=== PATIENT | male | born 1965 | race Caucasian/White ===

== ENCOUNTER 2019-06-01 19:11 | Emergency (ER) | payer OTHER, SELFPAY ==
[2019-06-01 19:28] VITALS: BP 173/80; PULSE 95; RESP 16; O2SAT 100
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
[2019-06-01] MEDS: TETANUS,DIPHTHERIA,AC PERTUSSIS ADULT 0.5 ML (ADACEL) IM (21:10)
[2019-06-01 21:15] VITALS: BP 168/89; PULSE 90; RESP 16; O2SAT 100
== END 2019-06-01 21:27 | disposition home or self-care (01) ==
PROVIDERS: Emergency Provider Emergency Medicine
DX: T21.24XA Burn of second degree of lower back, initial encounter (principal); T31.0 Burns involving less than 10% of body surface; Z23 Encounter for immunization; X11.1XXA Contact with running hot water, initial encounter
CPT/HCPCS: 16020; 90471; 90715; 99283

== ENCOUNTER 2022-12-09 01:46 | Emergency (ER) | payer MEDICAID, SELFPAY ==
--- NOTE | ~2022-12-09 | XR_ITS ---
XR elbow LT min 3V DATE: 12/09/2022 05:04 INDICATION: Dog bite, puncture wound TECHNIQUE: 4 views of left elbow COMPARISON: None FINDINGS: No fracture or dislocation or joint effusion. IMPRESSION: Negative Reviewed, dictated and finalized at location [facility]. IMPRESSION: Negative
--- NOTE | ~2022-12-09 | US_ITS ---
US scrotum doppler DATE: 12/09/2022 07:43 INDICATION: Scrotal trauma. Large open wound on scrotum from dog bite. TECHNIQUE: Real-time imaging and color flow imaging and Doppler analysis of the scrotal contents COMPARISON: None FINDINGS: No testicular mass lesion or torsion is detected. Approximate 4 [place] cyst of the head of the right epididymis. 3 mm cyst of the head of the left epid idymis. Small bilateral hydroceles. No varicoceles are noted. IMPRESSION: No testicular abnormalities detected Reviewed, dictated and finalized at [facility]. Reviewed, dictated and finalized at location A.
[2022-12-09 03:00] VITALS: BP 118/72; PULSE 91; RESP 16; TEMP 36.8; O2SAT 98
[2022-12-09] MEDS: TETANUS,DIPHTHERIA,AC PERTUSSIS ADULT (0.5 ML) BOOSTRIX IM (04:49)
[2022-12-09] MEDS: AMPICILLIN SULB 3 GM/NS 100 ML 3 GM/100 ML VIAL IVPB (04:50)
--- NOTE | 2022-12-09 06:33 | ED.GENADULT ---
HPI - General Adult General Chief complaint: Animal Bite <Garry Ortega MD - Last Filed: 12/09/22 06:37> Stated complaint: bit by pitbull <Garry Ortega MD - Last Filed: 12/09/22 06:37> Time Seen by Provider: 12/09/22 04:36 <Garry Ortega MD - Last Filed: 12/09/22 06:37> History of Present Illness HPI narrative: The patient 57-year-old gentleman who presents the emergency department with chief complaint of dog bites. Patient reports that his friends dog got startled and decided to attack him patient reports that he got bit in the scrotum and also reports that he got bit on the left elbow. Patient reports he has several small puncture wounds to the left elbow area patient also reports that there is a flap of tissue off of his scrotum. The patient reports pain with movement and improved with rest. The patient reports he is unsure of his last tetanus status reports that he has no allergies to penicillin <Garry Ortega MD - Last Filed: 12/09/22 06:37> Related Data Allergies/adverse reactions: Allergies Allergy/AdvReac Type Severity Reaction Status Date / Time No Known Allergies Allergy Verified 06/01/19 19:40 <Garry Ortega MD - Last Filed: 12/09/22 06:37> Review of Systems Review of Systems: A 10 system review of systems was completed on the patient and is negative except for what is stated in the HPI. Nursing and ancillary documentation was reviewed. <Garry Ortega MD - Last Filed: 12/09/22 06:37> [facility] Past Medical History Medical History: Medical History No active medical problems <Garry Ortega MD - Last Filed: 12/09/22 06:37> Social History Social History: Social History Substance use: never Gender identity (if verbalized by the patient): Male <Garry Ortega MD - Last Filed: 12/09/22 06:37> Exam Narrative: GENERAL: Well-appearing, well-nourished, and in no acute distress. HEAD: Normocephalic, atraumatic. EYES: PERRLA and EOMI. ENT: Nares clear, no rhinorrhea or epistaxis. Mucous membranes moist. NECK: Supple. CHEST: Clear to auscultation. No respiratory distress. HEART: Regular rate and rhythm. No murmur heard. Normal peripheral pulses. ABDOMEN: Soft, nontender, nondistended, normal active bowel sounds. : There is a half dollar sized wound present on the scrotum this appears to go through the outer layer of skin to the subcutaneous tissue EXTREMITIES: Normal range of motion there are several small puncture wounds present in the left elbow area. No edema. SKIN: Warm, dry, no rash. NEURO: No focal deficits. Alert and oriented x3. PSYCH: Normal mood and affect. <Garry Ortega MD - Last Filed: 12/09/22 06:37> Course Reevaluation(s) Reevaluation #1: Patient laying down in bed comfortable, denying any symptoms. Patient to be discharged to follow-up with his family physician and urologist within 1 week, no stitches at this time, discharge with Keflex and topical Neosporin, discussed with Dr. Al <Aleksandr Schmitz MD - Last Filed: 12/09/22 09:36> Date: 12/09/22 <Aleksandr Schmitz MD - Last Filed: 12/09/22 09:36> Time: 09:35 <Aleksandr Schmitz MD - Last Filed: 12/09/22 09:36> Consultations Consultation #1: dr al Clean, no stitches, discharge, outpatient follow-up with urologist <Aleksandr Schmitz MD - Last Filed: 12/09/22 09:36> Date: 12/09/22 <Aleksandr Schmitz MD - Last Filed: 12/09/22 09:36> Time: 08:44 <Aleksandr Schmitz MD - Last Filed: 12/09/22 09:36> Vital Signs Vital signs: Vital Signs Temperature 36.8 C 12/09/22 03:00 Pulse Rate 91 12/09/22 03:00 Respiratory Rate 16 09/16/23 03:00 Blood Pressure 118/72 12/09/22 03:00 Pulse Oximetry 98 12/09/22 03:00 Oxygen Deliver
[2022-12-09 06:56] VITALS: BP 118/60; PULSE 90; RESP 16; O2SAT 98
--- NOTE | 2022-12-09 07:19 | PC.NURSE ---
Assumed care of pt. U/S at bedside at this time, pt is alert and upright w/ VSS. Spouse at bedside. Discussed POC. VORB Dr Schmitz to give Dilaudid 0.5mg and Zofran 4mg IVP.
[2022-12-09 07:24] VITALS: BP 109/71; PULSE 55; RESP 17; O2SAT 100
[2022-12-09] MEDS: HYDROmorphone HCL INJ (*CRX) 1 MG/ML SYR 0.5 MG IV PUSH (07:30)
[2022-12-09] MEDS: ONDANSETRON INJ 4 MG/2 ML VIAL IV PUSH (07:31)
[2022-12-09 10:06] VITALS: BP 106/69; PULSE 58; RESP 16; O2SAT 99
== END 2022-12-09 10:08 | disposition home or self-care (01) ==
PROVIDERS: Emergency Provider Emergency Medicine
DX: S31.35XA Open bite of scrotum and testes, initial encounter (principal); S51.052A Open bite, left elbow, initial encounter; W54.0XXA Bitten by dog, initial encounter; Z23 Encounter for immunization
CPT/HCPCS: 73080; 76870; 90471; 90715; 93976; 96365; 96375; 99284; J0295; J1170; J2405